=== PATIENT | female | born 1945 | race Hispanic/Latino ===

== ENCOUNTER 2018-04-13 14:30 | Emergency (ER) | payer SELFPAY ==
[~2018-04-13] VITALS: Ht 152.4 cm; Wt 75.3 kg
--- OUTSIDE RECORDS SUMMARY | 2018-04-13 14:33 | XMS REPORT ---
[facility] [place] Unavailable Care Team Providers Care Unit Leader Name Role Phone Unavailable Unavailable Problems This patient has no known problems. Allergies, Adverse Reactions, Alerts This patient has no known allergies or adverse reactions. Medications This patient has no known medications. Encounters Start Date/Time End Date/Time Encounter Type Admission Type Attending [facility] Care Department Encounter ID 2018-05-08 00:00:00 2018-05-08 00:00:00 Outpatient [facility] [id number] 2018-01-03 13:03:32 2018-01-03 13:03:32 Outpatient [facility] [id number] 2017-12-12 08:35:19 2017-12-12 08:35:19 Outpatient [facility] [id number] 2017-11-17 00:00:00 2017-11-17 00:00:00 Outpatient [facility] [id number] 2017-10-13 11:03:29 2017-10-13 11:03:29 Outpatient [facility] [id number] 2017-10-11 13:52:29 2017-10-11 13:52:29 Outpatient [facility] [id number] 2017-09-21 00:00:00 2017-09-21 00:00:00 Outpatient [facility] [id number] 2017-08-25 07:39:15 2017-08-25 07:39:15 Outpatient [facility] [id number] 2017-08-24 09:48:29 2017-08-24 09:48:29 Outpatient [facility] [id number] 2017-08-23 13:32:28 2017-08-23 13:32:28 Outpatient [facility] [id number] 2017-05-24 09:34:51 2017-05-24 09:34:51 Outpatient [facility] [id number] 2017-04-29 14:53:47 2017-04-29 14:53:47 Outpatient [facility] [id number] 2017-02-02 00:00:00 2017-02-02 00:00:00 Outpatient [facility] [id number] 2016-12-06 00:00:00 2016-12-06 00:00:00 Outpatient [facility] [id number] 2016-11-16 08:06:43 2016-11-16 08:06:43 Outpatient [facility] [id number] 2016-11-16 00:00:00 2016-11-16 00:00:00 Outpatient [facility] [id number] 2016-11-09 05:49:00 2016-11-09 05:49:00 Outpatient [facility] [id number] 2016-11-05 09:32:29 2016-11-05 09:32:29 Outpatient [facility] [id number] 2016-11-02 09:21:09 2016-11-02 09:21:09 Outpatient [facility] [id number] 2016-10-29 08:29:32 2016-10-29 08:29:32 Outpatient [facility] [id number] 2016-10-15 00:00:00 2016-10-15 00:00:00 Outpatient [facility] [id number] 2016-09-15 09:21:02 2016-09-15 09:21:02 Outpatient [facility] [id number] 2016-09-14 00:00:00 2016-09-14 00:00:00 Outpatient [facility] [id number]
--- OUTSIDE RECORDS SUMMARY | 2018-04-13 14:33 | XMS REPORT | Clinical Summary ---
Author Author [facility] Address Unknown Phone Unavailable Care Team Providers Care Senior Quality Assurance Specialist Name Role Phone Claudia Prater MD PCP Allergies No Known Allergies Medications End Date Status Medication Sig Dispensed Refills Start Date Active Calcium Citrate 200 mg Take 0.5 80 tablet 0 (950 mg) TabIndications: tablets by 7 Hyperparathyroidism mouth As directed Take 2 tablets three times per day for the first week. Take 1 tablet three times per day for the second week. Take 1 tablet twice daily for the third week.. Active levothyroxine (SYNTHROID) Take 1 tablet 90 tablet 0 100 mcg by mouth 8 tabletIndications: daily. Hypothyroidism, unspecified type Active atorvastatin (LIPITOR) 20 Take 1 tablet 90 tablet 1 mg tabletIndications: by mouth at 8 Hyperlipidemia, bedtime unspecified nightly. hyperlipidemia type Active alendronate (FOSAMAX) 70 Take 1 tablet 12 tablet 3 mg tabletIndications: once a week 8 Senile osteoporosis on empty stomach with 8 oz of water and remain upright for 30 minutes. Active ergocalciferol (VITAMIN Take 1 12 capsule 0 D2) 50,000 unit capsule by 8 capsuleIndications: mouth weekly. Vitamin D deficiency Active nystatin (MYCOSTATIN) Apply to 30 g 0 100,000 unit/gram affected area 8 ointmentIndications: 2 times Perineal itching, female daily. Active clotrimazole (LOTRIMIN) 1 Apply 1-2 30 mL 11 % external drops to 8 solutionIndications: affected Onychomycosis nails 2 times a day. Use a nail file to keep nails thin. Treatment may take up to 1 year. 04/29/2017 Discontinued levothyroxine (SYNTHROID) Take 1 tablet 90 tablet 1 88 mcg tabletIndications: by mouth 7 Hypothyroidism, daily. unspecified type 04/29/2017 Discontinued cetirizine (ZYRTEC) 10 mg Take 1 tablet 90 tablet 1 tabletIndications: Cough by mouth 7 daily. 04/29/2017 Discontinued clotrimazole (LOTRIMIN) 1 Apply 1-2 30 mL 11 % external drops to 7 solutionIndications: affected Onychomycosis nails 2 times a day. Use a nail file to keep nails thin. Treatment may take up to 1 year. 04/29/2017 Discontinued losartan (COZAAR) 25 mg Take 1 tablet 90 tablet 0 tabletIndications: by mouth 7 Essential hypertension daily. 04/29/2017 Discontinued alendronate (FOSAMAX) 70 Take 1 tablet 12 tablet 0 mg tabletIndications: once a week 7 Osteoporosis on empty stomach with 8 oz of water and remain upright for 30 minutes. 04/29/2017 Discontinued ergocalciferol (VITAMIN Take 1 12 capsule 0 D2) 50,000 unit capsule by 7 capsuleIndications: mouth every Hyperparathyroidism month (Take once a month). 08/24/2017 Discontinued atorvastatin (LIPITOR) 20 Take 1 tablet 90 tablet 1 mg tabletIndications: by mouth at 7 Hyperlipidemia, bedtime unspecified nightly. hyperlipidemia type 08/24/2017 Discontinued alendronate (FOSAMAX) 70 Take 1 tablet 12 tablet 0 mg tabletIndications: once a week 8 Senile osteoporosis on empty stomach with 8 oz of water and remain upright for 30 minutes. 08/24/2017 Discontinued levothyroxine (SYNTHROID) Take 1 tablet 90 tablet 0 88 mcg tabletIndications: by mouth 8 Hypothyroidism, daily. unspecified type 01/03/2018 Discontinued ergocalciferol (VITAMIN Take 1 12 capsule 0 D2) 50,000 unit capsule by 8 capsuleIndications: mouth weekly. Vitamin D deficiency 01/03/2018 Discontinued atorvastatin (LIPITOR) 20 Take 1 tablet 90 tablet 1 mg tabletIndications: by mouth at 8 Hyperlipidemia, bedtime unspecified nightly. hyperlipidemia type 01/03/2018 Discontinued alendronate (FOSAMAX) 70 Take 1 tablet 12 tablet 3 08/24/201 mg tabletIndications: once a week 8 Senile osteoporosis on empty stomach with 8 oz of water and remain upright for 30 minutes. 10/11/2017 Discontinued levothyroxine (SYNTHROID) Take 1 tablet 90 tablet 0 100 mcg by mouth 8 tabletIndications: daily. Hypothyroidism, unspecified type 01/03/2018 Discontinued levothyroxine (SYNTHROID) Take 1 tablet 90 tablet 0 100 mcg by mouth 8 tabletIndications: daily. Hypothyroidism, unspecified type Active Problems Problem Noted Date Influenza vaccination declined 01/03/2018 Senile osteoporosis 04/29/2017 Adult BMI > 30 07/06/2016 Overweight (BMI 25.0-29.9) 07/06/2016 Hypercalcemia 05/17/2016 Hyperparathyroidism 04/29/2016 Inclusion cyst of skin of shoulder 02/06/2016 Infected cyst of skin 02/06/2016 Osteoporosis 11/13/2015 Essential hypertension- systolic 140s ; romero normal 04/18/2015 Refused influenza vaccine 01/23/2015 Elevated BP-systolic 01/23/2015 Elevated parathyroid hormone 01/04/2015 Vitamin D deficiency- needs eval of hypercalcemia and elevated PTH 01/04/2015 Serum calcium elevated 12/31/2014 Non morbid obesity due to excess calories 12/06/2014 BMI 31.0-31.9,adult 04/25/2014 Hypothyroidism 04/25/2014 Hyperlipidemia- has been taking med off and on due to gold card expiration 04/25/2014 Encounters Care Team Description Date Type Specialty Claudia Prater MD Prediabetes (Primary Dx); Hyperlipidemia, unspecified hyperlipidemia type; Hypothyroidism, unspecified type; Dietary counseling for Above / Below Normal BMI; Exercise counseling for Above Normal BMI Only!; Senile osteoporosis; Vitamin D deficiency; Immunization due; Perineal itching, female; Onychomycosis 01/03/2018 Office Visit Family Practice Claudia Prater MD Hyperlipidemia, unspecified hyperlipidemia type; Prediabetes 01/03/2018 Orders Only Family Practice Mehrdad Walsh Interpretation 01/03/2018 Telephone Tatyana Cummings MD Preventative health care; Hyperlipidemia, unspecified hyperlipidemia type; Hypothyroidism, unspecified type 12/12/2017 Lab Appointment Lab Claudia Prater MD Joad, Sabaa, MD Hyperlipidemia, unspecified hyperlipidemia type (Primary Dx); Hypothyroidism, unspecified type; Preventative health care 10/11/2017 Office Visit Family Practice Claudia Prater MD 08/25/2017 Ancillary Radiology Procedure Claudia Prater MD Essential hypertension (Primary Dx); Hyperlipidemia, unspecified hyperlipidemia type; Acquired hypothyroidism; Screening for breast cancer; Screening for colorectal cancer; Senile osteoporosis 08/24/2017 Office Visit Family Practice Claudia Prater MD Results 08/24/2017 Telephone [facility] Claudia Prater MD Hypothyroidism, unspecified type 08/23/2017 Lab Appointment Lab Claudia Prater MD Hypothyroidism, unspecified type (Primary Dx); Vitamin D deficiency; Hyperlipidemia, unspecified hyperlipidemia type 05/25/2017 Orders Only [facility] Claudia Prater MD Essential hypertension- systolic 140s ; romero normal (Primary Dx); Senile osteoporosis; Hyperlipidemia, unspecified hyperlipidemia type; Acquired hypothyroidism; Flu vaccine need; Immunization due 04/29/2017 Office Visit Family Practice after 04/12/2017 Immunizations Name Dates Previously Given Next Due Herpes Zoster Vaccine In 09/15/2016 (Deferred: Patient Refused) Clinic Influenza Vaccine 04/25/2014 (Deferred: Patient Refused) Influenza Vaccine, 04/29/2017 (Deferred: Patient Refused) Seasonal, Injectable Influenza, 01/03/2018 (Deferred: Patient Refused - Vis given, Vaccine<FLUCELVAX>(Multi- pt to consider at next visit) Dose) PCV 13 (Pnuemococcal 01/03/2018 (Deferred: Patient Refused - Vis given, Conjugated 13 Valent) pt to consider at next visit), 04/29/2017 (Deferred: Patient Refused) Pneumoccoccal 04/25/2014 Pneumococcal 13-valent 09/15/2016 (Deferred: Patient Refused) conj 0.5 mL injection Tdap Tetanus, diphtheria, 04/25/2014 acellular pertussis Vaccine Family History Medical History Relation Name Comments Heart Mother Relation Name Status Comments Father Mother Social History Date Tobacco Use Types Packs/Day Years Used Never Smoker Smokeless Tobacco: Never Used Tobacco Cessation: Counseling Given: Yes Alcohol Use Drinks/Week oz/Week Comments Yes 0 Standard 0.0 [id number] drinks or equivalent Sex Assigned at Date Recorded Not on file Industry Job Start Date Occupation Not on file Not on file Not on file Travel End Travel History Travel Start No recent travel history available. Last Filed Vital Signs Time Taken Vital Sign Reading 01/03/2018 1:04 PM CDT Blood Pressure 134/63 01/03/2018 1:04 PM CDT Pulse 96 01/03/2018 1:04 PM CDT Temperature 36.9 C (98.4 F) 01/03/2018 1:04 PM CDT Respiratory Rate 18 - Oxygen Saturation - - Inhaled Oxygen - Concentration 01/03/2018 1:04 PM CDT Weight 77.5 kg (170 lb 12.8 oz) 01/03/2018 1:04 PM CDT Height 152.4 cm (5') 01/03/2018 1:04 PM CDT Body Mass Index 33.36 Plan of Treatment Care Team Description Date Type Specialty Claudia Prater MD [address] [place] [id number] [phone] Follow up 05/08/2018 Office Visit Family Practice Health Maintenance Due Date Last Done Comments Breast Cancer Scrn 08/25/2018 08/25/2017, 05/19/2015, 04/30/2014 (Yearly) Colorectal Cancer Scrn 10/13/2018 10/13/2017, 02/16/2016 Annual (FIT/FOBT) Age 50 to 75 IMM Pneumococcal Age 65 Completed 04/25/2014, 04/25/2014 and Up Procedures Comments Procedure Name Priority Date/Time Associated Diagnosis FREE T4 Routine 12/12/2017 Hypothyroidism, 8:31 AM CDT unspecified type TSH Routine 12/12/2017 Hypothyroidism, 8:31 AM CDT unspecified type LIPID PROFILE Routine 12/12/2017 Hyperlipidemia, 8:31 AM CDT unspecified hyperlipidemia type HEMOGLOBIN A1C Routine 12/12/2017 Preventative health care 8:31 AM CDT COMPREHENSIVE METABOLIC Routine 12/12/2017 Preventative health care PANEL(DBIL NOT INCLUDED) 8:31 AM CDT CBC/DIFF Routine 12/12/2017 Preventative health care 8:31 AM CDT OCCULT BLOOD ICT Routine 10/13/2017 Screening for colorectal 10:58 AM CDT cancer MAMMOGRAM BILAT SCREEN Routine 08/25/2017 Screening for breast DIGITAL 8:13 AM CDT cancer TSH Routine 08/23/2017 Hypothyroidism, 1:27 PM CDT unspecified type INTACT PTH Routine 05/24/2017 Senile osteoporosis 9:33 AM [facility] VIT D, 25-HYDROXY Routine 05/24/2017 Senile osteoporosis 9:33 AM [facility] FREE T4 Routine 05/24/2017 Acquired hypothyroidism 9:33 AM [facility] TSH Routine 05/24/2017 Acquired hypothyroidism 9:33 AM [facility] LIPID PROFILE Routine 05/24/2017 Essential hypertension- 9:33 AM [facility] systolic 140s ; romero normal CBC/DIFF Routine 05/24/2017 Essential hypertension- 9:33 AM [facility] systolic 140s ; romero normal COMPREHENSIVE METABOLIC Routine 05/24/2017 Essential hypertension- PANEL(DBIL NOT INCLUDED) 9:33 AM [facility] systolic 140s ; romero normal after 04/12/2017 Results * HEMOGLOBIN A1C (12/12/2017 8:31 AM CDT) Hemoglobin A1c 6.4 (H) 4.3 - 6.1 % [facility] IMMUNOLOGY Est Average 137.0 mg/dL [facility] Gluc IMMUNOLOGY Specimen Blood Performing Organization Address City/State/Zipcode Phone Number [facility]MMUN[facility] * COMPREHENSIVE METABOLIC PANEL(DBIL NOT INCLUDED) (12/12/2017 8:31 AM CDT) Only the most recent of 2 results within the time period is included. Albumin 4.1 3.7 - 5.3 g/dL [facility] 1 Calcium 8.9 8.6 - 10.3 mg/dL [facility] 1 CO2 30 21 - 31 mmol/L [facility] 1 Chloride 102 98 - 107 mmol/L [facility] 1 Creatinine 0.70 0.6 - 1.2 mg/dL [facility] 1 Glucose 129 (H) 70 - 110 mg/dL [facility] 1 Alk Phos 56 34 - 104 U/L [facility] 1 Potassium 4.3 3.5 - 5.1 mmol/L [facility] 1 Sodium 139 136 - 145 mmol/L [facility] 1 ALT 41 7 - 52 U/L [facility] 1 AST 25 13 - 39 U/L [facility] 1 Urea Nitrogen 17 7 - 25 mg/dL [facility] 1 T Bilirubin 0.5 0.2 - 1.2 mg/dL [facility] 1 T Protein 6.7 6.0 - 8.3 g/dL [facility] 1 GFR, Estimated >60 mL/min/1.73 m2 [facility] 1 GFR, Estim, >60 mL/min/1.73 m2 [facility] Afr-Am 1 Anion Gap 7 [facility] 1 Specimen Blood Performing Organization Address [facility] [place] Number [facility] * TSH (12/12/2017 8:31 AM CDT) Only the most recent of 3 results within the time period is included. TSH 2.48 0.57 - 3.74 uIU/mL [facility] 1 Specimen Blood Performing Organization Address [facility] Phone Number [facility] * FREE T4 (12/12/2017 8:31 AM CDT) Only the most recent of 2 results within the time period is included. Free T4 1.05 0.61 - 1.18 ng/dl [facility] Comment: 1 females: 1st Trimester-0.52-1.10 ng/dL 2nd Trimester=0.45-0.99 ng/dL 3rd Trimester=0.48-0.95 ng/dL Specimen Blood Performing Organization Address City/[facility] Phone Number [facility] * LIPID PROFILE (12/12/2017 8:31 AM CDT) Only the most recent of 2 results within the time period is included. Cholesterol 210 mg/dL [facility] Comment: 1 REFERENCE RANGE: Desirable: <200 mg/dL Borderline: 200-240 mg/dL High Risk: >240 mg/dL Triglyceride 202 (H) <150 mg/dL [facility] Comment: 1 REFERENCE RANGE: Normal: <150 mg/dL Borderline High: 150-199 mg/dL High: 200-499 mg/dL Very High: >pt=034 mg/dL HDL 41 mg/dL [facility] Comment: 1 Increased CHD risk: <40 mg/dL Decreased CHD risk: >60 mg/dL LDL 129 mg/dL [facility] Comment: 1 REFERENCE RANGE: Optimal: <100 mg/dL Near Optimal: 100-129 mg/dL Borderline High: 130-159 mg/dL High: 160-189 mg/dL Very High: >xg=861 mg/dL Specimen Blood Performing Organization Address City/State/Zipcode Phone Number [facility] 1 * CBC/DIFF (12/12/2017 8:31 AM CDT) Only the most recent of 2 results within the time period is included. WBC 5.3 4.5 - 11.0 K/uL BT [facility] 2 RBC 4.38 4.20 - 5.40 M/uL BT [facility] 2 Hemoglobin 13.7 12.0 - 16.0 g/dL BT [facility] 2 Hematocrit 42.2 37.0 - 47.0 % BT [facility] 2 MCV 96 (H) 82 - 92 fL BT [facility] 2 MCH 31.3 27.0 - 32.0 pg BT [facility] 2 MCHC 32.5 32.0 - 36.0 g/dL [facility] 2 RDW 42.8 36.4 - 46.3 fL BT [facility] 2 Platelet 267 150 - 400 K/uL [facility] 2 Mean Platelet 11.3 9.4 - 12.4 fL [facility] Volume 2 Percent NRBC 0.0 BT [facility] 2 Absolute NRBC 0.00 BT [facility] 2 Neutrophil 53.2 34.0 - 70.0 % [facility] 2 Lymphocyte 33.6 20.0 - 50.0 % [facility] 2 Monocyte 9.1 5.0 - 12.0 % [facility] 2 Eosinophil 2.5 0.7 - 5.0 % [facility] 2 Basophil 0.8 0.1 - 1.2 % [facility] 2 Pct Immat Gran 0.8 (H) 0.0 - 0.5 BT [facility] 2 Neutrophil, Abs 2.83 1.56 - 6.13 K/uL BT [facility] 2 Lymphocyte, Abs 1.78 1.18 - 3.74 K/uL [facility] 2 Monocyte, Abs 0.48 (H) 0.24 - 0.36 K/uL BT [facility] 2 Eosinophil, Abs 0.13 0.04 - 0.36 K/uL BT [facility] 2 Basophil, Abs 0.04 0.01 - 0.08 K/uL BT [facility] 2 Absol Immat 0.04 (H) 0.00 - 0.03 K/uL [facility] Gran 2 Specimen Blood Performing Organization Address City/[facility]/Zipcode Phone Number [facility] * OCCULT BLOOD ICT (10/13/2017 10:58 AM CDT) Occult Blood Negative [facility] ICT Specimen Stool Performing Organization Address City/[facility]/Zipcode Phone Number [facility] * MAMMOGRAM BILAT SCREEN DIGITAL (08/25/2017 8:13 AM CDT) Impressions Performed At IMPRESSION: BENIGN SMS There is no mammographic evidence of malignancy. A 1 year screening mammogram is recommended. I have reviewed the study and agree with the findings in the report. This document has been electronically signed. Markus reynolds jr/josé:08/25/2017 08:28:38 Job Hand: Madison Benavides, [facility] letter sent: Benign Exam Mammogram BI-RADS: 2 Benign G0202 Z12.31 Narrative Performed At #[id number] - MAMMOGRAM BILAT SCREEN DIGITAL SMS BILATERAL DIGITAL SCREENING MAMMOGRAM WITH CAD: 08/25/2017 CLINICAL: Screening for malignancy. Comparison is made to exams dated:05/19/2015 and 04/30/2014 [facility]. The tissue of both breasts is heterogeneously dense. This may lower the sensitivity of mammography. Current study was also evaluated with a Computer Aided Detection (CAD) system. There are benign calcifications in both breasts. No significant masses, calcifications, or other findings are seen in either breast. There has been no significant interval change. Procedure Note Interface, Rad/Mammog In - 08/25/2017 10:29 AM CDT #[id number] - MAMMOGRAM BILAT SCREEN DIGITAL BILATERAL DIGITAL SCREENING MAMMOGRAM WITH CAD: 08/25/2017 CLINICAL: Screening for malignancy. Comparison is made to exams dated: 05/19/2015 and 04/30/2014 [facility]. The tissue of both breasts is heterogeneously dense. This may lower the sensitivity of mammography. Current study was also evaluated with a Computer Aided Detection (CAD) system. There are benign calcifications in both breasts. No significant masses, calcifications, or other findings are seen in either breast. There has been no significant interval change. IMPRESSION IMPRESSION: BENIGN There is no mammographic evidence of malignancy. A 1 year screening mammogram is recommended. I have reviewed the study and agree with the findings in the report. This document has been electronically signed. Markus reynolds jr/josé:08/25/2017 08:28:38 Job Hand: Madison Benavides [facility] letter sent: Benign Exam Mammogram BI-RADS: 2 Benign G0202 Z12.31 Performing Organization Address City/[facility] Phone Number SMS * VIT D, 25-HYDROXY (05/24/2017 9:33 AM [facility]) Vit D, 20.8 (L) 30 - 100 ng/mL [facility] 25-Hydroxy Comment: IMMUNOLOGY Vitamin D deficiency has been defined by the [place] of Medicine and Endocrine Society guideline as a level of serum 25-OH Vitamin D less than 20 ng/mL. The Endocrine Society further defines Vitamin D insufficiency as a level between 21 and 29 ng/mL and sufficiency as a level between 30 and 100 ng/mL. Performing Organization Address City/State/Zipcode Phone Number [facility] IMMUNOLOGY * INTACT PTH (05/24/2017 9:33 AM [facility]) Intact PTH 101.30 (H) 8.7 - 77.1 pg/mL BT [facility] 4 Specimen Blood Performing Organization Address City/[facility] Phone Number [facility] 4 after 04/12/2017 Insurance Type Payer Benefit Subscriber ID Effective Phone Address Plan / Dates Group [employer] SELF-PAY [employer] PLAN xxxxxxx 2018 [id number] SCREENED - [address] [id number] (Self)
--- NOTE | 2018-04-13 15:43 | Diagnostic Imaging Report ---
Exams: Head, cervical and thoracic spine CTs without IV contrast History: Trauma, fall, pain Comparison studies: None Technique: Axial images were obtained from the brain and cervical spine. Coronal and sagittal images reconstructed from the axial data. Dose modulation, iterative reconstruction, and/or weight based adjustment of the mA/kV was utilized to reduce the radiation dose to as low as reasonably achievable. Intravenous contrast: None Findings: Head CT: Scalp: No abnormalities. Bones: No fractures, blastic or lytic lesions. Extra-axial spaces: No masses. No fluid collections. Brain sulci: Appropriate for age. Ventricles: Normal in size and configuration. No hydrocephalus. Parenchyma: Incidental 2 mm calcification along the posterior right supramarginal gyrus without surrounding edema or mass effect compatible sequela of prior infection/inflammation. No other mass. No acute hemorrhage or acute or chronic cortical vascular infarcts. Sellar/suprasellar region: No abnormalities. Craniocervical junction: The foramen magnum is patent. No Chiari one malformation. Cervical spine CT: Fractures: None. Soft tissues: No gross acute abnormalities. Atlantoaxial articulation: Intact. Alignment: Straightened cervical curvature. Normal thoracic kyphosis. Mild upper thoracic curvature convex to the right. No subluxations. Cervicomedullary junction: No abnormalities. The foramen magnum is patent. Vertebrae: No infection or neoplasm. Cervical degenerative changes: Mildly degenerated disks from C4 to T1. Reactive degenerative endplate changes with mixed cystic and sclerotic changes at C4-C5 and at C5-C6. Mild cystic degenerative endplate changes along the posterior C7 endplate. Small disc osteophyte complexes from C4 to C7 indent the thecal sac do not result in significant canal stenosis. Mild uncovertebral arthrosis on the right at C4-C5 and bilaterally at C5-C6 without significant foraminal stenosis. Thoracic degenerative changes: Mild multilevel disc degeneration. Few scattered small endplate Schmorl's nodes from T4 through T7 and at the included L1-L2 vertebral level. Patent canal and foramina. Incidental findings: Mild scattered calcified atherosclerosis. IMPRESSION: Head CT: No acute abnormalities. Cervical and thoracic spines: 1. No fracture or subluxation. 2. Mild multilevel degenerative changes as described. 3. Please note, cannot adequately evaluate ligament, spinal cord and or vascular abnormalities on the basis of this examination. Signed by: Dr. Kareem Joy M.D. on 04/13/2018 3:40 PM
[2018-04-13] MEDS ORDERED: TRAMADOL HCL 50 MG TAB PO ONE (15:45)
--- NOTE | 2018-04-13 16:04 | Diagnostic Imaging Report ---
EXAMINATION: PA and lateral views of the chest. COMPARISON: None CLINICAL HISTORY: Fall, evaluate for fracture DISCUSSION: Lines/tubes: None. Lungs: The lungs are well inflated and clear. No pneumonia or pulmonary edema. Pleura: No pleural effusion or pneumothorax. Heart and mediastinum: The cardiomediastinal silhouette is normal. Bones and soft tissues: No acute bony abnormalities. IMPRESSION: No acute cardiopulmonary abnormalities. Signed by: Dr. Huber Barker M.D. on 04/13/2018 4:01 PM
[2018-04-13 16:33] VITALS: BP 156/62
== END 2018-04-13 16:33 | disposition home or self-care (01) ==
LOC: ER 14:30
DX: S00.83XA Contusion of other part of head, initial encounter (principal); S16.1XXA Strain of muscle, fascia and tendon at neck level, initial encounter; S29.012A Strain of muscle and tendon of back wall of thorax, initial encounter; W01.0XXA Fall on same level from slipping, tripping and stumbling without subsequent striking against object, initial encounter; Y92.512 Supermarket, store or market as the place of occurrence of the external cause; I10 Essential (primary) hypertension
CPT/HCPCS: 70450; 71046; 72125; 72128; 99283